=== PATIENT | male | born 1960 | race Caucasian/White ===

== ENCOUNTER 2021-11-12 11:00 | Emergency (ER) | payer OTHER, SELFPAY ==
--- NOTE | 2021-11-12 11:07 | ED.URI ---
HPI - URI/Sore Throat General Chief Complaint: Upper Respiratory Infection Stated Complaint: cough, drainage Time Seen by Provider: 11/12/21 11:08 Source: patient and RN notes reviewed History of Present Illness HPI Narrative: Patient is 60-year-old male who presents the urgent care with complaints of cough and drainage since Thursday. Patient states that he has been taking Mucinex, DayQuil, NyQuil without any relief. Patient denies of any fever, wheezes, shortness of breath, nausea or vomiting. Patient denies any history of pneumonia. No other acute complaints. No acute distress noted. Patient aware of the plan of care. Some parts of this dictation were generated by voice recognition software and may contain typographical and/or grammatical inaccuracies. Related Data Home Medications Medication Instructions Recorded Confirmed atorvastatin 80 mg PO DAILY 11/12/21 11/12/21 hydrochlorothiazide 25 mg PO DAILY 11/12/21 11/12/21 metoprolol tartrate 50 mg PO DAILY 11/12/21 11/12/21 Allergies Allergy/AdvReac Type Severity Reaction Status Date / Time No Known Allergies Allergy Verified 11/12/21 11:33 Review of Systems Review of Systems: CONSTITUTIONAL: Denies fever, chills, or sweats. EYES: Denies visual changes, redness, or discharge. ENT: Denies rhinorrhea, congestion, sore throat, otalgia. Reports of postnasal drainage CARDIOVASCULAR: Denies chest pain, palpitations, or edema. RESPIRATORY: Reports of cough without dyspnea or wheezing GASTROINTESTINAL: Denies abdominal pain, nausea, vomiting, or diarrhea. GENITOURINARY: Denies dysuria or hematuria. SKIN: Denies rash or itching. MUSCULOSKELETAL: Denies back pain, joint pain, or myalgia. NEUROLOGIC: Denies headache, numbness, or weakness. All other systems reviewed are negative, except as documented in HPI. PMFSH Comments At the time of my signature, I reviewed and agree with the nursing past medical, surgical, social, and family history. There is no relevant family history pertinent to the patient complaint. Exam Narrative: GENERAL: This is a well-nourished, well-developed patient, in no apparent distress. HEAD: normocephalic, atraumatic. EYES: PERRL. Sclera clear/white. Vision is grossly intact. EARS: External ears normal, auditory canals clear and without drainage, TMs normal without perforation. Hearing grossly intact. NOSE: External nose normal with no obvious nasal discharge, nares without redness, clear rhinorrhea. THROAT: Mucous membranes moist, posterior pharynx clear. Moderate postnasal drainage NECK: Neck supple CARDIOVASCULAR: Regular rate and rhythm without murmurs, gallops, or rubs. RESPIRATORY: Dry cough noted on exam. Clear to auscultation. Breath sounds equal bilaterally. No wheezes, rales, or rhonchi. SKIN: warm, intact with no suspicious lesions or rash, good texture and turgor. NEURO: awake, alert, and oriented to person, place and time. There were no obvious focal neurologic abnormalities. EXTREMITIES: No clubbing, cyanosis, or edema. Course Course Level of Care: Express Care Visit Vital Signs Vital signs: Vital Signs Temperature 98.7 F 11/12/21 11:26 Pulse Rate 79 11/12/21 11:26 Respiratory Rate 14 11/12/21 11:26 Blood Pressure 134/82 11/12/21 11:26 Pulse Oximetry 98 11/12/21 11:26 Temperature 98.7 F 11/12/21 11:42 Pulse Rate 79 11/12/21 11:42 Respiratory Rate 14 11/12/21 11:42 Blood Pressure 134/82 11/12/21 11:42 Pulse Oximetry 98 11/12/21 11:42 Reviewed MDM - URI/Sore Throat MDM Narrative Medical decision making narrative: Advised the patient to complete the steroid regimen as prescribed. Be sure to eat and drink with the medication. Use the Tessalon Perles as needed for nonproductive cough. May continue Mucinex. Use Flonase nasal spray and Benadryl prior to bedtime to help with postnasal drainage and sinus relief. Use Tylenol/ibuprofen as needed. If you develop any increase in symptoms associate
[2021-11-12 11:26] VITALS: BP 134/82; PULSE 79; RESP 14; TEMP 37.1; O2SAT 98
[2021-11-12 11:42] VITALS: BP 134/82; PULSE 79; RESP 14; TEMP 37.1; O2SAT 98
== END 2021-11-12 12:20 | disposition home or self-care (01) ==
PROVIDERS: Emergency Provider Nurse Practitioner Family; PCP Family Medicine
DX: J40 Bronchitis, not specified as acute or chronic (principal); E78.00 Pure hypercholesterolemia, unspecified; I10 Essential (primary) hypertension
CPT/HCPCS: 99203; G0463

== ENCOUNTER 2024-02-01 09:56 | Outpatient (CLI) | payer MEDICARE, SELFPAY ==
--- NOTE | ~2024-02-01 | XR_ITS ---
XR chest 2V 02/01/2024 10:07 Indication: Cough and shortness of breath Procedure: 2 view chest Comparison: No prior studies for comparison. Findings: There are diffuse interstitial infiltrates bilaterally. No significant effusion. Heart size normal. There is peribronchial thickening. No pneumothorax. No acute osseous abnormality. Impression: 1: Diffuse bilateral interstitial infiltrates with peribronchial thickening. Differential diagnosis i ncludes atypical pneumonia and edema. Reviewed, dictated and finalized at location B. Impression: 1: Diffuse bilateral interstitial infiltrates with peribronchial thickening. Di fferential diagnosis includes atypical pneumonia and edema.
== END 2024-02-01 09:57 | disposition home or self-care (01) ==
LOC: ANHBWCIMG 10:00
PROVIDERS: PCP Nurse Practitioner Adult Health; Visit Provider Nurse Practitioner Adult Health
DX: R05.3 Chronic cough (principal); R91.8 Other nonspecific abnormal finding of lung field
CPT/HCPCS: 71046

== ENCOUNTER 2024-02-05 12:36 | Outpatient (CLI) | payer MEDICARE, SELFPAY ==
--- NOTE | ~2024-02-05 | CT_ITS ---
CT Scan of the Chest without Contrast: Clinical Indication: Shortness of breath Technique: Contiguous sections were acquired throughout the chest without intravenous contrast. Dose reduction technique was used on this scan by utilizing automated exposure control and iterative recon struction technique. The dose-length product (DLP) was 373.09 mGy-cm. Findings: There is no evidence of any significant mediastinal, hilar or axillary lymphadenopathy. The mediastin al soft tissues appear normal. There is no evidence of pleural or pericardial effusion. There is chronic interstitial disease with peripheral and basilar predominance, with interstitial thi ckening and mild architectural distortion. Images through the upper abdomen reveal no abnormalities. Impression: Chronic interstitial disease, compatible with UIP, as detailed above. Reviewed, dictated and finalized at location . Impression: Chronic interstitial disease, compatible with UIP, as detailed above.
== END 2024-02-05 12:37 | disposition home or self-care (01) ==
LOC: ANHIMG 12:37
PROVIDERS: PCP Nurse Practitioner Adult Health; Visit Provider Nurse Practitioner Adult Health
DX: J84.9 Interstitial pulmonary disease, unspecified (principal)
CPT/HCPCS: 71250

== ENCOUNTER 2024-04-06 11:08 | Outpatient (CLI) | payer MEDICARE, SELFPAY ==
[2024-04-08 11:27] LABS: ANA Cascade Screen NEGATIVE (NEGATIVE)
[2024-04-20 14:54] LABS: Aspergillus fumigatus NEGATIVE (NEGATIVE)
== END 2024-04-06 11:09 | disposition home or self-care (01) ==
LOC: ANHBWCLAB 11:09
PROVIDERS: PCP Nurse Practitioner Adult Health; Visit Provider Internal Medicine Critical Care Medicine
DX: J84.9 Interstitial pulmonary disease, unspecified (principal)
CPT/HCPCS: 36415; 86038; 86225; 86235; 86364

== ENCOUNTER 2024-04-26 10:03 | Outpatient (CLI) | payer MEDICARE, OTHER, SELFPAY ==
--- NOTE | 2024-04-26 13:24 | WPDSIXMINUTE ---
Six Minute Walk Procedure Procedure Performed Pulmonary Stress Test (6 min walk) Six Minute Walk Six Minute Walk: This is a pulmonary function test with pre and post-bronchodilator spirometry, plethysmography and diffusing capacity. The test was performed and results interpreted in accordance with the 2019 and 2005 ATS/ERS Task Force guidelines respectively using the Global Lung Function Initiative-2012 reference equations. Patient demonstrated good effort and cooperation. Reproducibility criteria were met. The quality of the pre bronchodilator spirometry maneuver was Grade A and post bronchodilator spirometry maneuver was Grade A. Findings: Spirometry: The contour the inspiratory and expiratory flow tracing are normal. The pre bronchodilator FVC is 3.04 L, 71% predicted. The pre bronchodilator FEV1 is 2.55 L, 78% predicted. The pre bronchodilator FEV1: FVC ratio is 84%. The post bronchodilator FVC is 3.10 L, representing a 2% increase. The post bronchodilator FEV1 is 2.67 L, representing a 5% increase. The post bronchodilator FEV1: FVC ratio is 86%. Plethysmography: The total lung capacity 6.14 L, 91% predicted. The functional residual capacity is 3.36 L, 95% predicted. The residual volume is 2.90 L, 127% predicted. Diffusing capacity: The diffusing capacity unadjusted for hemoglobin and carboxyhemoglobin is 20.5, 76% predicted. The diffusing capacity adjusted for alveolar volume is 5.15, 124% predicted. Impression: The spirometry is normal without evidence of an obstructive abnormality. The forced vital capacity is decreased with a normal FEV1 and no evidence of an obstructive or restrictive abnormality. This is an abnormal but nonspecific finding. There is no significant improvement after inhaling a single dose of albuterol. The lung volumes are normal. The diffusing capacity is normal. There are no prior studies for comparison
--- NOTE | 2024-04-26 13:27 | WPDSIXMINUTE ---
Six Minute Walk Procedure Procedure Performed Pulmonary Stress Test (6 min walk) Six Minute Walk Six Minute Walk: This is a 6 minute walk test. The test was performed and interpreted in accordance with the 2014 ERS/ATS task force guidelines. Findings: The patient's resting room air oxygen saturation measured by pulse oximetry was 95% and heart rate was 70 bpm. Patient ambulated for 442 meters and oxygen saturation remained 90 to 95%. Heart rate at the end of the study was 109 bpm. The patient did not qualify for supplemental oxygen at rest or with ambulation. There are no prior studies for comparison.
== END 2024-04-26 10:04 | disposition home or self-care (01) ==
LOC: ANHPFT 10:05
PROVIDERS: PCP Nurse Practitioner Adult Health; Visit Provider Internal Medicine Critical Care Medicine
DX: J84.9 Interstitial pulmonary disease, unspecified (principal)
CPT/HCPCS: 94060; 94618; 94726; 94729

== ENCOUNTER 2024-10-29 15:36 | Emergency (ER) | payer MEDICARE, OTHER, SELFPAY ==
[2024-10-29 15:43] VITALS: BP 123/73; PULSE 86; RESP 16; TEMP 36.6; O2SAT 98
--- NOTE | 2024-10-29 15:45 | ED.URI ---
HPI - URI/Sore Throat General Chief Complaint: Upper Respiratory Infection Stated Complaint: Chest Congestion Time Seen by Provider: 10/29/24 15:45 Source: patient and RN notes reviewed Mode of arrival: ambulatory Limitations: no limitations History of Present Illness HPI Narrative: 63-year-old male presents with concern for cough for couple of days. Reports history of interstitial lung disease. Reports he was told by his doctor any time he gets a cough he needs to be seen, he could not get into his doctor today. He denies fever. Reports he has taken [id number] medications without relief MD elicited complaint: cough Related Data Home Medications ?Medication ?Instructions ?Recorded ?Confirmed ?Last Taken ?Type hydrochlorothiazide 25 mg tablet 25 mg PO DAILY 11/12/21 10/29/24 Unknown History amlodipine 10 mg tablet 10 mg PO DAILY 02/01/24 10/29/24 Unknown History rosuvastatin 40 mg tablet 40 mg PO DAILY 02/01/24 10/29/24 Unknown History mycophenolate mofetil 500 mg tablet 500 mg PO Q12H 08/02/24 10/29/24 Unknown History Allergies Allergy/AdvReac Type Severity Reaction Status Date / Time No Known Allergies Allergy Verified 10/29/24 15:39 Review of Systems Review of Systems: CONSTITUTIONAL: Denies malaise, chills, sweats, or fever. EYES: Denies visual changes, redness, or discharge. ENT: Reports rhinorrhea, congestion CARDIOVASCULAR: Denies chest pain, palpitations, or edema. RESPIRATORY: Reports cough. Denies dyspnea. GASTROINTESTINAL: Denies abdominal pain, nausea, vomiting, diarrhea SKIN: Denies rash or itching. MUSCULOSKELETAL: Denies myalgia. NEUROLOGIC: Denies headache. All systems reviewed & are unremarkable except as noted in HPI and below [facility] Past Medical History Medical History (Updated 10/29/24 @ 16:05 by Yeimi Vasquez NP) Hyperlipidemia Hypertension age 43 on meds Social History Social History Smoking status: Never smoker Alcohol intake: never Substance use type: does not use Lack of Transportation: No Lack of Food: Never True Current Housing: I Have Housing Concerned About Future Housing: No Difficulty Paying Gas/Electric Bills: No Difficulty Paying for Meds: No Currently Unemployed: No Education: High School Diploma/GED Occupation/Education: occupation Additional occupation/education comments: [employer] Agree to blood products: Yes Comments At time of signature, agree with nursing past medical, surgical, social and family history. There is no relevant family history pertinent to the presenting complaint Exam Narrative: GENERAL: Well-appearing, well-nourished, and in no acute distress. HEAD: Normocephalic EYES: PERRLA, conjunctivae clear ENT: Nares clear. Mucous membranes moist. TM pearly adorno with dull light reflex bilaterally; no tragal tenderness. Oropharynx not erythematous without lesions. Tonsils not enlarged and without exudate, no drooling, no hoarseness, no trismus, uvula midline. NECK: Supple. No lymphadenopathy CHEST: Scattered rhonchi and wheeze, breath sounds equal. No rales, or stridor. No respiratory distress, speaks in full sentences. HEART: Regular rate and rhythm. No murmur heard. SKIN: Warm, dry, no rash. NEURO: Alert and oriented x3. PSYCH: Normal mood and affect Course Course Emergency Course: Patient is aware of diagnosis, understands and agrees to treatment plan. Anticipatory guidance given. Patient agrees to follow-up as directed and is aware of reasons to seek care at the emergency department. Portions of this record may have been created with voice recognition software Level of Care: Express Care Visit Vital Signs Vital signs: Reviewed. MDM - URI/Sore Throat MDM Narrative Medical decision making narrative: Differential diagnosis considered: Leger virus, strep pharyngitis, allergic rhinitis, upper respiratory tract infection, sinusitis, rhinosinusitis, nasopharyngitis. viral pharyngitis, otitis media, otitis externa, pneumonia, bronchitis, viral cough syndrome, viral syndrome, and influenza. Exam findings show no acute concerns or changes; patient is non-toxic appearing and is in no distress. Patient is appropriate for outpatient treatment and follow-up. Lab Data Attestation: I reviewed the patient's lab results. Critical Care Time Critical Care Time Critical Care Time: No Discharge Plan Discharge Clinical Impression: Upper respiratory infection with cough and congestion Patient Disposition: Home, Self-Care Condition: Stable Instructions: Antibiotic Form, Acute Cough (ED) Additional Instructions: Take medication as directed Recommend antihistamine such as Benadryl at night time and Zyrtec or Dana during the day Also, recommend symptomatic treatment includes: rest, fluids, and increase humidity of the air at home. Recommend Acetaminophen as directed on the bottle to reduce fever, pain, headache. Avoid smoking/second-hand smoke. Please schedule a follow-up visit with your personal physician for further evaluation and treatment within 3-5days. If your symptoms persist, change or worsen significantly before you can contact your personal physician then please, without delay, go to the emergency department for further evaluation. Patient Language: Gabonese Prescriptions: New azithromycin [Zithromax Z-Leonard] 250 mg tablet See Rx Instructions .ROUTE .COMPLEX Qty: 6 0RF Rx Instructions: take 500 mg today (day 1), then 250 mg for 4 days (days 2-5) methylprednisolone [Medrol (Leonard)] 4 mg tablets,dose pack See Rx Instructions .ROUTE .COMPLEX Qty: 21 0RF Rx Instructions: orally per package directions No Action hydrochlorothiazide 25 mg Tablet 25 mg PO DAILY amlodipine 10 mg tablet 10 mg PO DAILY rosuvastatin 40 mg tablet 40 mg PO DAILY mycophenolate mofetil 500 mg tablet 500 mg PO Q12H Follow-up/Referrals: Vera Renteria APRN [Primary Care Provider] - Time of Disposition: 16:05
== END 2024-10-29 16:09 | disposition home or self-care (01) ==
PROVIDERS: Emergency Provider Nurse Practitioner; PCP Nurse Practitioner Adult Health
DX: J06.9 Acute upper respiratory infection, unspecified (principal); E78.5 Hyperlipidemia, unspecified; I10 Essential (primary) hypertension; Z79.899 Other long term (current) drug therapy
CPT/HCPCS: 99213; G0463

== ENCOUNTER 2025-01-31 09:47 | Outpatient (CLI) | payer MEDICARE, OTHER, SELFPAY ==
--- OUTSIDE RECORDS SUMMARY | 2025-01-31 10:14 | XMS_ITS | Referral Summary ---
Author Organization [facility] Address [address] [place] [address] Care Team Providers Care Hat Brim Curler Name Role Phone Yoli Lu OT Unavailable [phone] Con Gordillo MD Primary Care Provider [phone] Vera Renteria KITCHEN LEAD Unavailable [phone] Kayleigh Espana RN Unavailable Antonella vailable Encounters Date Type Department Care Team Description 01/13/2025 Telephone [facility] Pulmonary [address] [facility] [address]th [place] [address] [place] [phone] Kayleigh Espana RN 01/12/2025 6:07 PM CDT - 01/12/2025 11:59 PM CDT Hospital Encounter [address] [address] Immunosuppression Discharge Disposition: Discharge to home or self care 01/12/2025 2:30 PM CDT - 01/12/2025 11:59 PM CDT Hospital Encounter [facility] Pulmonary [address] [facility] [address] [place] [phone] ILD (interstitial lung disease) (HCC) Discharge Disposition: Discharge to home or self care 01/12/2025 3:30 PM CDT Office Visit [facility] Pulmonary [address] [facility] 8th [place] [address] [place] [phone] Arabella Rivera MD ILD (interstitial lung disease) (HCC) (Primary Dx); Immunosuppression 12/15/2024 Telephone [facility] Pulmonary [address] [facility] 8th [place] [address] [place] [address] Alpa Rowan CMA 11/22/2024 Results Follow-Up [facility] Pulmonary [address] [facility] [address] [facility] [address] [place] [address] Arabella Rivera MD CBC with auto differential, CBC with auto differential from Last 3 Months Allergies No known active allergies Medications albuterol HFA (PROVENTIL HFA,VENTOLIN HFA,PROAIR HFA) 90 mcg/actuation inhalerIndications :Bronchitis Inhale 2 puffs every 6 (six) hours as needed for wheezing 1 each 12/15/19 24 Active Additional Information Patient not taking.Reported on 01/12/2025 amLODIPine (NORVASC) 10 mg tablet Take 1 tablet (10 mg total) by mouth daily 90 tablet 4 12/15/19 24 Active promethazine (PHENERGAN) 1.25 mg/mL syrup Take 10 mL (12.5 mg total) by mouth 4 (four) times a day as needed for nausea or vomiting (cough) 120 mL 12/18/19 24 Active Additional Information Patient not taking.Reported on 01/12/2025 rosuvastatin (CRESTOR) 40 mg tabletIndications: Multiple-type hyperlipidemia TAKE 1 TABLET BY MOUTH EVERY DAY 90 tablet 4 01/04/20 24 Active hydroCHLOROthiazid e 12.5 mg tabletIndications: Benign hypertension TAKE 1 TABLET (12.5 MG TOTAL) BY MOUTH DAILY 30 tablet 07/04/20 24 Active mycophenolate mofetil (CELLCEPT) 500 mg tablet TAKE 3 TABLETS (1 500 MG TOTAL) BY MOUTH 2 (TWO) TIMES A DAY 360 tablet 9 12/24/19 25 Active methylPREDNISolone (MEDROL DOSEPACK) 4 mg Dosepack Hasn't started yet 01/11/20 25 Active Active Problems Problem Noted Date Diagnosed Date ILD (interstitial lung disease) 07/07/2024 Bronchitis 12/15/2023 Assessment & Plan (12/15/2023 9:53 AM CDT): Has beginnings of bronchitis with slight wheeze heard. He has had this in the past. Will start treatment with Medrol Dosepak, azithromycin and renew his albuterol inhaler. I asked him to call if he has no improvement in symptoms Class 2 obesity due to exces s calories without serious comorbidity with body mass index (BMI) of 36.0 to 36.9 in adult 12/01/2022 Assessment & Plan (12/15/2023 9:52 AM CDT): BMI Follow-up includes: exercise counseling - patient goes to [employer] 2 times a week.. Assessment & Plan (12/01/2022 12:17 PM CDT): BMI Follow-up includes: nutrition counseling, exercise counseling and education provided. Medicare annual wellness visit, initial 12/02/19 Assessment & Plan (12/20/2023 6:51 PM CDT): -Recommended: Healthy diet. Avoiding junk food/fast food. -30 minutes of exercise most days of the week. Increase to 45 minutes for weight loss. Immunizations: Recommended [facility]S REVIEWED WITH HIM Follow-up in 6 months. Assessment & Plan (12/01/2022 12:20 PM CDT): A(n) yearly well adult visit has been performed today. Glenn Correia is up to date on screening tests. He is in need of None- no screening indicated at this time. He is up to date on needed preventative vaccination. We discussed healthy lifestyle habits, educational material has been given. Medications reviewed, changes documented as per the medical record and discussed with patient along with risks vs benefits. Advised to begin progressive daily aerobic exercise program, follow a low fat, low cholesterol diet, attempt to lose weight, reduce salt in diet and cooking, improve dietary compliance, continue current medications, and continue current healthy lifestyle patterns Return in 6 months Benign hypertension 08/16/2013 Overview (12/05/2016): BENIGN HYPERTENSION Assessment & Plan (12/15/2023 9:53 AM CDT): Stable/ Improved. Blood pressure is adequately controlled on amlodipine and hydrochlorothiazide . We will not make any medication changes today. Will have him follow-up in 6 months for continued monitoring and management Assessment & Plan (12/22/2020 5:32 PM CDT): Controlled Will continue amlodipine, hydrochlorothiazide Blood Pressure Follow-up: Lifestyle modifications education provided on sodium reduction, increase physical activity, reduce alcohol consumption and weight reduction. Assessment & Plan (06/21/2020 11:13 AM CDT): Doing okay, BP is controlled Multiple-type hyperlipidemia 02/14/2013 Overview (12/04/2016): MIXED HYPERLIPIDEMIA Assessment & Plan (12/15/2023 9:52 AM CDT): Lipid abnormalities are stable, reviewed previous lipid levels in [facility]. Reviewed recent labs with patient Lab Results Component Value Date CHOL 116 12/01/2023 CHOL 111 09/29/2022 CHOL 117 11/22/2021 Lab Results Component Value Date HDL 33 (L) 12/01/2023 HDL 34 (L) 09/29/2022 HDL 41 11/22/2021 Lab Results Component Value Date LDLCALC 62 12/01/2023 LDLCALC 58 09/29/2022 LDLCALC 57 11/22/2021 LDL 100 06/23/2016 LDL 88 12/03/2015 LDL 92 06/01/2015 Lab Results Component Value Date TRIG 107 12/01/2023 TRIG 97 09/29/2022 TRIG 93 11/22/2021 No results found for: POCCHDLR No results found for: POCNONHDL No results found for: POCCHLPL Continue statin therapy. Lipitor (atorvastatin)- Order for lipid panel was given today to be obtained. Pt voiced understanding of lab drawn and continuation of current medication regimen. Assessment & Plan (12/22/2020 5:32 PM CDT): Cholesterol is quite well controlled, save for the HDL/good cholesterol, which can be improved with regular exercise. Liver enzymes are normal Renal function is good as well Blood counts are normal Attention deficit disorder (ADD) without hyperac tivity 03/04/2011 Overview (12/05/2016): ATTN DEFIC NONHYPERACT Atopic rhinitis 09/04/2010 Overview (12/04/2016): ALLERGIC RHINITIS NOS Resolved Problems Problem Noted Date Diagnosed Date Resolved Date BMI 33.0-33.9,adult 06/21/2020 12/15/19 24 Assessment & Plan (06/21/2020 10:57 AM CDT): BMI Follow-up includes: nutrition counseling, exercise counseling and education provided. Encounter for screening colonoscopy 03/19/2020 12/15/2023 Overview (03/19/2020): Added automatically from request for surgery [id number] Acute non-recurrent maxillary sinusitis 03/23/2018 07/01/2018 Assessment & Plan (03/23/2018 7:45 PM CDT): 1. Sudafed 2. Augmentin 3. Nasal saline rinses as needed for congestion. 4. Follow-up in 5-7 days - if symptoms worsen or persist Encounter for long-term (cur rent) use of antibiotics 06/17/2017 12/24/2017 Septic arthritis 06/01/2017 07/01/2018 Pain in wrist 05/15/2017 12/30/2018 Fracture of carpal bone 05/15/201708/2017 Gastroesophageal reflux disease 02/14/2013 06/25/2017 Overview (12/04/2016): ESOPHAGEAL REFLUX Immunizations Immunization Administration Dates Next Due Influenza, Quadrivalent, Shauna l Culture-based MDCK, Preservative Free, Antibiotic Free, Intramuscular 08/06/2021 Influenza, Quadrivalent, Spl it, Intramuscular 06/24/2016,06/07/2015 Influenza, Quadrivalent, Spl it, Preservative Free, Intramuscular 06/21/2020,07/07/2019,07/01/2018 07/01/2019 Influenza, Split 09/04/2010 Influenza, Trivalent, High D ose, Split, Preservative Free, Intramuscular 07/07/2024 Influenza, Trivalent, IM (MDV) 05/22/2014 Influenza, Unspecified 08/31/2023(Deferr ed: Patient Refused),08/31/2022(Deferred: Patient Refused),05/18/2017 Koko (J&J) SARS-CoV-2 Vaccination 11/05/2020 TD Preservative Free 01/21/2017 Tdap 09/04/2010 ZOSTER Recombinant 12/01/2022 Social History Tobacco Use Types Packs/Day Years Used Date Smoking Tobacco: Never Smokeless Tobacco: Never Tobacco Cessation:Counseling Given: Not Answered Alcohol Use Standard Drinks/Week Comments No 0 (1 standard drink = 0.6 oz pur e alcohol) Humiliation, Afraid, Rape, and Kick questionnair e Answer Date Recorded Within the last year, have y ou been afraid of your partner or ex-partner? No 11/27/2021 Within the last year, have y ou been humiliated or emotionally abused in other ways by your partner or ex-partner? No Within the last year, have y ou been kicked, hit, slapped, or otherwise physically hurt by your partner or ex-partner? No 11/27/2021 Within the last year, have y ou been raped or forced to have any kind of sexual activity by your partner or ex-partner? No 11/27/2021 Social Connection and Isolat ion Panel [NHANES] Answer Date Recorded In a typical week, how many times do you talk on the phone with family, friends, or neighbors? More than three times a week 11/27/2021 Frequency of Social Gatherin gs with Friends and Family Not on file 11/27/2021 Attends Holiness Services Not on file 11/27 Active Member of Clubs or Organizations Not on f ile 11/27/2021 Attends Club or Organization Meetings Not on gurdeep e 11/27/2021 Are you , , di vorced, , never , or living with a partner? 11/27/2021 AUDIT-C Answer Date Recorded Q1: How often do you have a drink containing alc ohol? Never 11/27/2021 Average Number of Drinks Not on file 022 Q3: How often do you have si x or more drinks on one occasion? Never 11/27/2021 Overall Financial Resource Strain (CARDIA) Answe r Date Recorded How hard is it for you to pa y for the very basics like food, housing, medical care, and heating? Not hard at all 11/27/2021 PHQ-2 Answer Date Recorded PHQ-2 Total Score (If total score is 3 or more points, staff should administer the PHQ-9) 0 12/15/2023 [facility] - Occupational Stress Questionnaire Answer Date Recorded Do you feel stress - tense, restless, nervous, or anxious, or unable to sleep at night because your mind is troubled all the time - these days? Not at all 11/27/2021 Exercise Vital Sign Answer Date Recorde d On average, how many days pe r week do you engage in moderate to strenuous exercise (like a brisk walk)? 4 days 11/27/2021 On average, how many minutes do you engage in exercise at this level? 60 min 11/27/2021 Hunger Vital Sign Answer Date Recorded Within the past 12 months, y ou worried that your food would run out before you got the money to buy more. Never true 11/28/19 22 Within the past 12 months, t he food you bought just didn't last and you didn't have money to get more. Never true 11/27/2021 PRAPARE - Transportation Answer Date Re corded In the past 12 months, has l ack of transportation kept you from medical appointments or from getting medications? No 10/31 In the past 12 months, has l ack of transportation kept you from meetings, work, or from getting things needed for daily living? No 11/27/2021 Housing Stability Vital Sign Answer Negrito e Recorded In the last 12 months, was t here a time when you were not able to pay the mortgage or rent on time? No 11/27/2021 Number of Places Lived in the Last Year Not on f ile 11/27/2021 In the last 12 months, was t here a time when you did not have a steady place to sleep or slept in a senior care (including now)? 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 Gender Identity Not on file Sexual Orientation Not on file Occupation Industry Job Start Date Job End Date 2 Not on file Not on file Not on file Last Filed Vital Signs Vital Sign Reading Time Taken Comments Blood Pressure 120/80 01/12/2025 3:20 PM CDT Pulse 74 01/12/2025 3:20 PM CDT Temperature 36.7 C (98.1 F) 01/12/2025 3:20 PM CDT Respiratory Rate 18 01/12/2025 3:20 PM CDT Oxygen Saturation 95% 01/12/2025 3:20 PM CDT Inhaled Oxygen Concentration - - Weight 98.9 kg (218 lb) 01/12/2025 3:20 PM CDT Height 172.7 cm (5' 8) 01/12/2025 3:20 PM CDT Body Mass Index 33.15 01/12/2025 3:20 PM CDT Plan of Treatment Not on file Procedures Procedure Name Priority Date/Time Associated Diagnosis Comments CBC WITH AUTO DIFFERENTIAL Routine 01/16/2025 1:59 PM CDT Immunosuppression RESPIRATORY PATHOGEN PANEL Routine 01/12/2025 8:44 PM CDT Immunosuppression PULMONARY FUNCTION TEST (PFT) Routine 01/12/2025 3:04 PM CDT ILD (interstitial lung disease) (HCC) CBC WITH AUTO DIFFERENTIAL Routine 11/18/2024 10:16 AM CDT Immunosuppression PSA SCREEN Routine 12/01/2023 12:11 PM CDT Screening for malignant neoplasm of prostate COLONOSCOPY 04/23/2020 9:01 AM CDT HEPATITIS C ANTIBODY Routine 12/28/2018 3:32 PM CDT Encounter for hepatitis C screening test for low risk patient from Last 3 Months or Most Recently Relevant to Health Maintenance Results * CBC with auto differential (01/16/2025 1:59 PM CDT) WBC 10.3 3.8 - 10.8 Thousand/u L [facility] RBC, POC 4.69 4.20 - 5.80 Million/uL [facility] Hgb 14.5 13.2 - 17.1 g/dL [facility] Hct 43.5 38.5 - 50.0 % [facility] MCV 92.8 80.0 - 100.0 fL [facility] MCH 30.9 27.0 - 33.0 pg [facility] MCHC 33.3 32.0 - 36.0 g/dL [facility] Comment: For adults, a slight decrease in the calculated MCHC value (in the range of 30 to 32 g/dL) is most likely not clinically significant; however, it should be interpreted with caution in correlation with other red cell parameters and the patient's clinical condition. Rdw 12.7 11.0 - 15.0 % [facility] Platelets 293 140 - 400 Thousand/u L [facility] MPV 9.6 7.5 - 12.5 fL [facility] Neutrophils, abs 7,354 1,500 - 7,800 cells/uL [facility] Lymphocytes, abs 2,009 850 - 3,900 cells/uL [facility] Monocyte abs 762 200 - 950 cells/uL [facility] Eosinophils, abs 155 15 - 500 cells/uL [facility] Basophils, abs 21 0 - 200 cells/uL [facility] Neutrophils 71.4 % [facility] Lymphocyte pct 19.5 % [facility] Monocytes 7.4 % [facility] Eosinophils 1.5 % [facility] Basophils 0.2 % [facility] Blood 01/16/2025 1:59 PM CDT 01/16/2025 2:00 PM CDT Narrative [facility] - 01/17/2025 5:40 AM CDT FASTING:NO FASTING: NO us Arabella Rivera MD LAB BLOOD ORDERABLES Final R esult [facility] [address] [place] [address] * Respiratory pathogen panel Nasopharyngeal (01/12/2025 8:44 PM CDT) Pathologist [facility] Influenza A RNA Not Detected Not Detected Influenza B RNA Not Detected Not Detected [facility] RSV RNA Not Detected Not Detected [facility] COVID-19 RNA Not Detected Not Detected [facility] Coronavirus 229E RNA Not Detected Not Detected [facility] Coronavirus HKU1 RNA Not Detected Not Detected [facility] Coronavirus NL63 RNA Not Detected Not Detected [facility] Coronavirus OC43 RNA Not Detected Not Detected [facility] Adenovirus DNA Not Detected Not Detected [facility] Metapneumovirus RNA Not Detected Not Detected [facility] Rhinovirus/Enterov irus RNA Not Detected Not Detected [facility] Parainfluenza 1 RNA Not Detected Not Detected [facility] Parainfluenza 2 RNA Not Detected Not Detected [facility] Parainfluenza 3 RNA Not Detected Not Detected [facility] Parainfluenza 4 RNA Not Detected Not Detected [facility] B. pertussis DNA Not Detected Not Detected [facility] B. parapertussis DNA Not Detected Not Detected [facility] C. pneumoniae DNA Not Detected Not Detected [facility] M. pneumoniae DNA Not Detected Not Detected [facility] Nasopharyngeal 01/12/2025 8: 44 PM CDT 01/12/2025 9:17 PM CDT Narrative [facility] - 01/12/2025 10:23 PM CDT Patient immunocompromised - full RPP panel Is the Patient experiencing symptoms consistent with COVID?->Yes Surveillance testing for transplant patient?->No Interpretive Data The [employer] FilmArray Respiratory Panel (RP2.1) assay is a multiplexed real-time PCR based nucleic acid test capable of simultaneous qualitative detection and identification of multiple respiratory viral and bacterial nucleic acids, including SARS Coronavirus 2 (the causative agent of COVID-19). The following bacteria, viruses and virus subtypes can be identified using the FilmArray RP2.1 assay: Bordetella pertussis, Bordetella parapertussis, Chlamydia pneumoniae, Mycoplasma pneumoniae, Adenovirus, SARS Coronavirus 2, seasonal coronaviruses (Coronavirus HKU1, Coronavirus NL63, Coronavirus 229E, and Coronavirus OC43), Influenza A, Influenza A subtype H1, Influenza A subtype H3, Influenza A subtype 2009 H1, Influenza B, Metapneumovirus, Parainfluenza 1, Parainfluenza 2, Parainfluenza 3, Parainfluenza 4, RSV, Rhinovirus/Enterovirus. Due to the genetic similarity between human Rhinovirus and Enterovirus, the FilmArray RP2.1 assay cannot reliably differentiate them. Coronavirus OC43 may cross-react with some isolates of Coronavirus HKU1. A dual positive result may be due to cross-reactivity or may indicate a co- infection. The detection and identification of specific viral and bacterial nucleic acids from individuals exhibiting signs and symptoms of a respiratory infection aids in the diagnosis of respiratory infection if used in conjunction with other clinical and epidemiological information. The results of this test should not be used as the sole basis for diagnosis, treatment, or other management decisions. Negative results in the setting of a respiratory illness may be due to infection with pathogens that are not detected by this test. Positive results do not rule out infection/co-infection with other organisms. The agent(s) detected by the FilmArray RP2.1 may not be the definite cause of disease. Additional testing (lab, imaging, etc.) may be necessary when evaluating a patient with possible respiratory tract infection. The FilmArray RP2.1 assay has FDA clearance for testing of KITCHEN LEAD swabs. The performance of additional specimen types has been assessed by the performing laboratory. The performance characteristics of this assay have been determined by [facility]ious [facility]. Current interpretive data was last revised on 22. us Arabella Rivera MD LAB MICROBIOLOGY - GENERAL O RDERABLES Final Result [facility] [place] [address] * Pulmonary Function Test - (01/12/2025 3:04 PM CDT) Pathologist [facility] FVC PRE 2.65 L [facility] FVC %PRE PRED 68 % [facility] FEV1 PRE 2.39 L [facility] FEV1 %PRE PRED 80 % [facility] FEV1/FVC PRE 90.3 % [facility] Anatomical Region Laterality Modality PFT 01/12/2025 2:34 PM CDT Narrative 01/12/2025 8:24 PM CDT Table formatting from the original result was not included. [facility] Division of Pulmonary & Critical Care Medicine [address] [place] [address]; [place] [address]; [place] [address]; [phone] Pulmonary Function Laboratory Pulmonary Stress Test Simple/Oxygen Assessment Patient: Glenn Correia Date: 01/12/2025 : 1960 Ht: 68 IN Wt: 218 LBS Time (min) Distance (ft)/ Engel O2 L/M SpO2 HR Dee* BP FEV1 % Pred Rest: RA 96 97 0 134/79 2.39 80 % Walk/Bike: 1 RA 90 107 0 2 RA 92 111 0 3 RA 90 115 0 4 RA 90 116 0 5 RA 90 116 0 6 min 0 sec RA 90 118 0 Recovery: 1 RA 94 108 0 138/86 2.32 78% 3 RA 97 100 0 *Dee rate of perceived exertion (1-10 dyspnea scale) Heber, CHEST 2003; 123:[id number] Walk Test Summary: Six Minute Walk Distance: 1500 ft Six-minute Walk Work [distance (m) x body wt (kg)]: 39361 kg.m (normal >60,000kg.m) Oxygen required to maintain SpO2 greater than 90% during six minutes of walkin L/M Comments: O2A Interpretation: Breathing room air, SpO2 is normal at rest and during exercise sufficient to increase pulse, SpO2 falls but remains normoxemic . On this basis, SpO2 is adequate at rest breathing room air and while walking breathing room air. This level of exercise is associated with no significant change of FEV1. By signing this report, the attending pulmonary physician certifies that he/she has personally reviewed and interpreted the graphic and numerical data associated with this pulmonary function study and has reviewed and /or edited a preliminary draft report and agrees with the written final report. PFT performed at:->[facility] Adult PFT [facility]- [id number] Procedure:->Spirometry Procedure:->Oxygen Assessment Titration Pulmonary Function Test Interpretation SPIROMETRY: The FEV1 to FVC ratio is normal. The FEV1 and FVC are reduced in a pattern suggestive of a restrictive abnormality. The flow volume loop is normal. Impression: There is a mild restrictive ventilatory defect. However, measurement of lung volumes is suggested to confirm this if clinically indicated. Compared with most recent study, there has been no significant interval change. The attending pulmonary physician certifies a physician presence in the [facility] during the administration of aerosolized bronchodilator. The attending pulmonary physician certifies that he/she has reviewed and interpreted the graphic and numerical data of this pulmonary function study and agrees with the written final report. The lower limit of normal for PaO2 and %HbO2 is age dependent. However, the [facility] Pulmonary Function Laboratory defines hypoxemia as a PaO2 <56 mm Hg or a %HbO2 <89%. Starting on August of 2024 the [facility] Pulmonary Function Laboratory utilizes race neutral GLI Global normative equations. us Arabella Rivera MD PFT ORDERABLES Final Result * CBC with auto differential (11/18/2024 10:16 AM CDT) WBC 5.5 3.8 - 10.8 Thousand/u L [facility] RBC, POC 4.65 4.20 - 5.80 Million/uL [facility] Hgb 14.2 13.2 - 17.1 g/dL [facility] Hct 44.1 38.5 - 50.0 % [facility] MCV 94.8 80.0 - 100.0 fL [facility] MCH 30.5 27.0 - 33.0 pg [facility] MCHC 32.2 32.0 - 36.0 g/dL [facility] Comment: For adults, a slight decrease in the calculated MCHC value (in the range of 30 to 32 g/dL) is most likely not clinically significant; however, it should be interpreted with caution in correlation with other red cell parameters and the patient's clinical condition. Rdw 12.9 11.0 - 15.0 % [facility] Platelets 177 140 - 400 Thousand/u L [facility] MPV 9.7 7.5 - 12.5 fL [facility] Neutrophils, abs 2,332 1,500 - 7,800 cells/uL [facility] Lymphocytes, abs 2,409 850 - 3,900 cells/uL [facility] Monocyte abs 578 200 - 950 cells/uL [facility] Eosinophils, abs 160 15 - 500 cells/uL [facility] Basophils, abs 22 0 - 200 cells/uL [facility] Neutrophils 42.4 % [facility] Lymphocyte pct 43.8 % [facility] Monocytes 10.5 % [facility] Eosinophils 2.9 % [facility] [facility] Bas[facility] 0.4 % [facility] Blood 11/18/2024 10:1 6 AM CDT 11/18/2024 10:17 AM CDT Narrative [facility] - 11/19/2024 5:32 AM CDT FASTING:NO FASTING: NO us Arabella Rivera MD LAB BLOOD ORDERABLES Final R esult ISABEL [facility] [address] [place] [address] * PSA screen (12/01/2023 12:11 PM CDT) PSA-Total 0.25 <=5.40 ng/mL Comment: Interpretive Data AGE SEX REFERENCE INTERVAL 0 minutes-150 years Female None 0 minutes-49 years Male None 50-59 years Male 0-3.90 60-69 years Male 0-5.40 70-79 years Male 0-6.20 80-150 years Male 0-6.20 The Bin PSA Total assay procedure was used. Results from different manufacturers or methods may not be comparable. Serial testing should be performed using the same method. Current interpretive data last revised 22. Blood 12/01/2023 12:1 1 PM CDT 12/01/2023 10:59 PM CDT us Phil Lomeli MD LAB BLOOD ORDERABLES Final Result [facility] [address] [place] [address] * COLONOSCOPY (04/23/2020 9:01 AM CDT) Anatomical Region Laterality Modality Other Narrative Procedure Note Farooq Santiago MD - 04/23/2020 9:01 AM CDT [facility] Patient Name: Glenn Correia Procedure Date: 04/23/2020 9:01 AM Date of : 1960 Admit Type: Outpatient Age: 59 Gender: Male Attending MD: Farooq Santiago M.D. Room: [facility] ENDOSCOPY ROOM 2 Note Status: Finalized Patient Profile: Refer to note in patient chart for documentation of history and physical. Procedure: Colonoscopy Indications: Screening for colorectal malignant neoplasm, Last colonoscopy: February 2010 Referring MD: Phil Lomeli M.D. Providers: Farooq Santiago M.D. Impression: - Hemorrhoids found on perianal exam. - Diverticulosis in the sigmoid colon, in the descending colon and in the transverse colon. - The examination was otherwise normal. - No specimens collected. Recommendation: - Discharge patient to home. - Resume previous diet. - Continue present medications. - Repeat colonoscopy in 10 years for screeningpurposes. - Return to primary care physician as previously scheduled. Medicines: Propofol per Anesthesia Complications: No immediate complications. Estimated Blood Loss: Estimated blood loss: none. Procedure: Pre-Anesthesia Assessment: - This assessment was completed [Time of Assessment] prior to the administration of sedation. The benefits, risks and alternatives of theprocedure and sedation were discussed and informed consent was obtained. All questions were answered. Please referto the signed informed consent document in the medical record. Bowel prep was administered using a single dose. The bowel preparation used was Miralax. Thebowel preparation used was bisacodyl tablets. The scopewas passed under direct vision. The [id number] was introduced through the anus andadvanced to the the cecum, identified by appendiceal orificeand ileocecal valve. The colonoscopy was performedwithout difficulty. The patient tolerated the procedurewell. The quality of the bowel preparation was good. Findings: Hemorrhoids were found on perianal exam. Multiple small and large-mouthed diverticula were found in thesigmoid colon, descending colon and transverse colon. The exam was otherwise without abnormality. Electronically signed by Farooq Santiago M.D. Farooq Santiago M.D. 04/23/2020 11:23:33 AM Number of Addenda: 0 Note Initiated On: 04/23/2020 9:01 AM Procedure Code(s): --- Professional --- G0121, Colorectal cancer screening; colonoscopy on individual not meeting criteria for high risk Diagnosis Code(s): --- Professional --- K57.30, Diverticulosis of large intestine without perforation orabscess without bleeding K64.9, Unspecified hemorrhoids Z12.11, Encounter for screening for malignant neoplasm of colon CPT copyright 2017 [employer]. All rights reserved. The codes documented in this report are preliminary and upon information coder reviewmay be revised to meet current compliance requirements. Recognized by the [employer] for promoting quality in endoscopy us Farooq Santiago MD ENDOSCOPY PROCEDURES Final Re sult * Hepatitis C antibody (12/28/2018 3:32 PM CDT) Hep C Ab Negative Negative CHAR ANDERSON (RAVI) Comment:Testing performed by : [facility], [address] [place] [address], [place]., [address] Blood specimen (specimen) 12/28/2018 3:32 PM CDT 12/29/2018 9:48 AM CDT Narrative CHAR ANDERSON (RAVI) - 12/29/2018 10:39 AM CDT us Phil Lomeli MD LAB MICROBIOLOGY - GENERAL ORDERABLES Final Result [facility] ANDERSON ([place]) 1 [facility] Department [place] [address] from Last 3 Months or Most Recently Relevant to Health Maintenance Insurance MEDICARE GROUP [facility] Member Subscriber Plan / Payer (Ef fective 2023-Present) Name:Glenn Correia Relation to Subscriber:Self Name:Glenn Correia Payer ID:[id number] Group ID:[id number] Type:COMMERCIAL Address: [address] [address] [place] [address] [employer] [place] Member Subscriber Plan / Payer (Ef fective 2013-Present) Name:Glenn Correia Relation to Subscriber:Self Name:Glenn Correia Payer ID:[id number] Group ID:[id number] Type:COMMERCIAL Address: [address] [address] [place] [address] MEDICARE Advance Directives For more information, please contact: [phone] * Full Code (Latest Code Status on File) Date Activated Date Inactivated Comments 04/23/2020 8:55 AM 04/23/2020 4:27 PM * Full Code Date Activated Date Inactivated Comments 04/23/2020 8:55 AM 04/23/2020 8:55 AM Care Teams Hat Brim Curler Relationship Specialty Start Date End Date Con Gordillo MD [address] [place] [address] [place] [address] PCP - General Family Practice 07/12/24 Yoli Lu OT [address] [facility] [place] [address] Occupational Therapist Occupational Therapy 08/19/17 Vera Renteria NP [address] [place] [address] Nurse Practitioner Nurse Practitioner 07/12/24 Kayleigh Espana, RN Registered Nurse Pulmonary Disease 08/22/24
--- OUTSIDE RECORDS SUMMARY | 2025-01-31 10:14 | XMS_ITS | Clinical Summary ---
Author Organization [facility] Address [address] [place] [address] Care Team Providers Care Machine Sand Mixer Name Role Phone Yoli Lu OT Unavailable [phone] Con Gordillo MD Primary Care Provider [phone] Vera Renteria NP Unavailable [phone] Kayleigh Espana RN Unavailable Antonella vailable Allergies No known active allergies Medications albuterol [...] includes: exercise counseling - patient goes to [employer] 2 times a week.. Assessment & Plan (12/01/2022 12:17 PM CDT): BMI Follow-up includes: nutrition counseling, exercise counseling and education provided. Medicare annual wellness visit, initial 12/02/19 23 Assessment & Plan (12/20/2023 6:51 PM CDT): [...] are stable, reviewed previous lipid levels in [facility]. Reviewed recent labs with patient Lab Results [...] Date Resolved Date BMI 33.0-33.9,adult 06/21/2020 12/15/19 Assessment & Plan (06/21/2020 10:57 AM CDT): BMI Follow-up includes: nutrition counseling, exercise counseling and education provided. Encounter for screening colonoscopy 03/19/2020 12/15/2023 Overview (03/19/2020): Added automatically from request for surgery [id number] Acute non-recurrent maxillary sinusitis 03/23/2018 07/01/2018 Assessment & Plan (03/23/2018 7:45 PM CDT): 1. Sudafed 2. Augmentin 3. Nasal saline rinses as needed for congestion. 4. Follow-up in 5-7 days - if symptoms worsen or persist Encounter for long-term (cur rent) use of antibiotics 06/17/2017 12/24/2017 Septic arthritis 06/01/2017 07/01/2018 Pain in wrist 05/15/2017 12/30/2018 Fracture of carpal bone 05/15/2017 11/0 08/2017 Gastroesophageal reflux disease 02/14/2013 06/25/2017 Overview (12/04/2016): ESOPHAGEAL REFLUX Encounters Date Type Department Care Team Description 01/13/2025 Telephone [facility] [address] [facility] [address]th [place] [address] [place] [address] Kayleigh Espana RN 01/12/2025 6:07 PM CDT - 01/12/2025 11:59 PM CDT Hospital Encounter [facility] [address] [place] [address] Immunosuppression Discharge Disposition: Discharge to home or self care 01/12/2025 3:30 PM CDT Office Visit [facility] [address] [facility] 8th [place] [address] [place] [address] Arabella Rivera MD ILD (interstitial lung disease) (HCC) (Primary Dx); Immunosuppression 01/12/2025 2:30 PM CDT - 01/12/2025 11:59 PM CDT Hospital Encounter [facility] [address] [facility] [address] [place] [address] ILD (interstitial lung disease) (HCC) Discharge Disposition: Discharge to home or self care 12/15/2024 Telephone [facility] [address] [facility] 8th [place] [address] [place] [address] Alpa Rowan CMA 11/22/2024 Results Follow-Up [facility] [address] [facility] [address] [place] [address] Arabella Rivera MD CBC with auto differential, CBC with auto differential from Last 3 Months Immunizations Immunization Administration Dates Next Due Influenza, [...] Free 01/21/2017 Tdap 09/04/2010 ZOSTER Recombinant 12/01/2022 Surgical History Surgery Date Site/Laterality Comments APPENDECTOMY appendicitis: Appendectomy WRIST SURGERY 08/31/2016 - 08/30/2017 Right COLONOSCOPY 03/11/2010 COLONOSCOPY 04/23/2020 Medical History Medical History Date Comments Hypertension Hyperlipidemia Family History Medical History Relation Name Comments Parkinsonism Father No Known Problems Mother Relation Name Status Comments Father Mother Alive Social History Tobacco Use Types Packs/Day Years [...] and Family Not on file 11/27/2021 Attends Judaism Services Not on file 11/27 Active Member [...] staff should administer the PHQ-9) 0 12/15/2023 [facility] - Occupational Stress Questionnaire Answer Date Recorded [...] place to sleep or slept in a longterm (including now)? No 11/27/2021 Sex and Gender Information Value Date Recorded Sex Assigned at Not on file Legal Sex Male 12:14 AM WELL TENDER Gender Identity Not on file Sexual Orientation Not on file Occupation Industry Job Start Date Job End Date 2 Not on file Not on file Not on file Obstetrics History Last Filed Vital Signs Vital Sign Reading [...] 01/12/2025 3:20 PM CDT Plan of Treatment Health Maintenance Due Date Last Done Comments Hepatitis B Screening 1976 Pneumococcal vaccine 65+ (1 of 2 - PCV) 1977 Zoster Vaccine (2 of 2) 01/26/2023 12/01/2022 Covid-19 Vaccine (3 - 2023-2 5 season) 2024 08/17/2021, 11/05/2020 Depression Screening 12/14/2024 12/15/2023, 11/27/2021, 11/27/2021, Additional history exists Fall Risk Assessment 12/14/2024 12/15/2023, 04/23/2020, 12/24/2017 Well Visit 65+ 12/14/2024 12/15/2023, 04/0 10/2022, 11/27/2021, Additional history exists Prostate Cancer Screening-PSA 11/30/2025, 12/17/2020, 06/28/2018, Additional history exists DTaP/Tdap/Td Vaccine (3 - Td or Tdap) 01/21/2027 01/21/2017, 09/04/2010 Colon Cancer Screening-Colonoscopy 04/23/2030 04/23/2020, 03/11/2010, 03/11/2010 Hepatitis C Screening Completed 12/28/2018 Colon Cancer Screening-CT Colonography Discontinued 04/23/2020, 03/11/2010, 03/11/2010 Colon Cancer Screening-DNA Stool Discontinued 04/23/2020, 03/11/2010, 03/11/2010 Colon Cancer Screening-FIT Discontinued 04/23, 03/11/2010, 03/11/2010 Colon Cancer Screening-Sigmoidoscopy Discontinued 04/23/2020, 03/11/2010, 03/11/2010 Influenza Vaccine Completed 07/07/2024, , 06/21/2020, Additional history exists Procedures Procedure Name Priority Date/Time Associated Diagnosis [...] BLOOD ORDERABLES Final R esult [facility] [address] [place] [address] * Respiratory pathogen panel Nasopharyngeal (01/12/2025 8:44 PM CDT) Pathologist [facility] Influenza A RNA Not Detected Not Detected Influenza B RNA Not Detected Not Detected [facility] RSV RNA Not Detected Not Detected [facility] COVID-19 RNA Not Detected Not Detected [facility] Coronavirus 229E RNA Not Detected Not Detected [facility] Coronavirus HKU1 RNA Not Detected Not Detected [facility] Coronavirus NL63 RNA Not Detected Not Detected [facility] Coronavirus OC43 RNA Not Detected Not Detected [facility] Adenovirus DNA Not Detected Not Detected [facility] Metapneumovirus RNA Not Detected Not Detected [facility] Rhinovirus/Enterov irus RNA Not Detected Not Detected [facility] Parainfluenza 1 RNA Not Detected Not Detected [facility] Parainfluenza 2 RNA Not Detected Not Detected [facility] Parainfluenza 3 RNA Not Detected Not Detected [facility] Parainfluenza 4 RNA Not Detected Not Detected [facility] B. pertussis DNA Not Detected Not Detected [facility] B. parapertussis DNA Not Detected Not Detected [facility] C. pneumoniae DNA Not Detected Not Detected [facility] M. pneumoniae DNA Not Detected Not Detected [facility] Nasopharyngeal 01/12/2025 8: 44 PM CDT 01/12/2025 9:17 PM CDT Narrative [facility] - 01/12/2025 10:23 PM CDT Patient immunocompromised - full RPP panel Is the Patient experiencing symptoms consistent with COVID?->Yes Surveillance testing for transplant patient?->No Interpretive Data The [email or web address] FilmArray Respiratory Panel (RP2.1) assay is a [...] assay has FDA clearance for testing of LINK AND LINK KNITTING MACHINE OPERATOR swabs. The performance of additional specimen types has been assessed by the performing laboratory. The performance characteristics of this assay have been determined by [facility]. Current interpretive data was last revised on 22. us Arabella Rivera MD LAB MICROBIOLOGY - GENERAL [facility] Final Result CHAR [facility] Department [place] [address] * Pulmonary Function Test - (01/12/2025 3:04 PM CDT) FVC PRE 2.65 L [facility] FVC %PRE PRED 68 % [facility] FEV1 PRE 2.39 L [facility] FEV1 %PRE PRED 80 % [facility] FEV1/FVC PRE 90.3 % [facility] Anatomical Region Laterality Modality PFT 01/12/2025 2:34 PM CDT Narrative 01/12/2025 8:24 PM CDT Table formatting from the original result was not included. [facility] Division of Pulmonary & Critical Care Medicine [address] [place] [address]; [employer] [address]; [place] [address]; [phone] Pulmonary Function Laboratory Pulmonary Stress Test Simple/Oxygen [...] Work [distance (m) x body wt (kg)]: 30190 kg.m (normal >60,000kg.m) Oxygen required to maintain [...] with the written final report. PFT performed at:->[facility] Adult PFT Lab- [facility] Procedure:->Spirometry Procedure:->Oxygen [...] and %HbO2 is age dependent. However, the [facility] Pulmonary Function Laboratory defines hypoxemia as a PaO2 <56 mm Hg or a %HbO2 <89%. Starting on August of 2024 the [facility] Pulmonary Function Laboratory utilizes race neutral GLI Global normative equations. us Arabella Rivera MD PFT ORDERABLES Final Result * CBC with auto differential (11/18/2024 10:16 AM CDT) Pathologist [facility] WBC 5.5 3.8 - 10.8 Thousand/u L [...] BLOOD ORDERABLES Final R esult [facility] [address] [place] [address] * PSA screen (12/01/2023 12:11 PM CDT) [...] Lomeli MD LAB BLOOD ORDERABLES Final Result Performing Organization Address City/[facility] Co de Phone Number CHAR [address] [address] Department [place] [address] * COLONOSCOPY (04/23/2020 9:01 AM CDT) Anatomical Region Laterality Modality Other Narrative Procedure Note Farooq Santiago MD - 04/23/2020 9:01 AM CDT [facility] Patient Name: Glenn Correia Procedure Date: 04/23/2020 9:01 AM Date of : 1960 Admit Type: Outpatient Age: 59 Gender: Male Attending MD: Farooq Santiago M.D. Room: [facility] ENDOSCOPY ROOM 2 Note Status: Finalized Patient [...] The scopewas passed under direct vision. The [id number] was introduced through the anus andadvanced to [...] malignant neoplasm of colon CPT copyright 2017 [employer]. All rights reserved. The codes documented in this report are preliminary and upon manager environmental affairs reviewmay be revised to meet current compliance requirements. Recognized by the [employer] for promoting quality in endoscopy us Farooq Santiago MD ENDOSCOPY PROCEDURES Final Re sult * Hepatitis C antibody (12/28/2018 3:32 PM CDT) Hep C Ab Negative Negative CHAR ANDERSON (RAVI) Comment:Testing performed by : [facility], [address] [place] [address], [place]., [address] Blood specimen (specimen) 12/28/2018 3:32 PM CDT 12/29/2018 9:48 AM CDT Narrative [facility] ([facility]) - 12/29/2018 10:39 AM CDT Phil Lomeli MD LAB MICROBIOLOGY - GENERAL ORDERABLES Final Result CHAR ANDERSON ([place]) 1 [facility] [place] [address] from Last 3 Months or Most Recently Relevant to Health Maintenance Insurance MEDICARE GROUP [facility] Member Subscriber Plan / Payer (Ef fective 2023-Present) Name:Glenn Correia Relation to Subscriber:Self Name:Glenn Correia Payer ID:[id number] Group ID:[id number] Type:COMMERCIAL Address: [address] [address] [place] [address] [employer] [facility] GROUP ADMIN[place] Member Subscriber Plan / Payer (Ef fective 2013-Present) Name:Glenn Correia [place] Relation to Subscriber:Self Name:Glenn Correia Payer ID:[id number] Group ID:[id number] Type:COMMERCIAL Address: [address] [address] [place] [address] MEDICARE Advance Directives For more information, please contact: [phone] * Full Code (Latest Code Status on File) Date Activated Date Inactivated Comments 04/23/2020 8:55 AM 04/23/2020 4:27 PM * Full Code Date Activated Date Inactivated Comments 04/23/2020 8:55 AM 04/23/2020 8:55 AM Care Teams Machine Sand Mixer Relationship Specialty Start Date End Date Con Gordillo MD [address] [facility] [place] [address] PCP - General Family Practice 07/12/24 Yoli Lu OT [address] [facility] [place] [address] Occupational Therapist Occupational Therapy 08/19/17 Vera Renteria NP [address] [place] [address] Nurse Practitioner Nurse Practitioner 07/12/24 Kayleigh Espana, RN Registered Nurse Pulmonary Disease 08/22/24
[2025-01-31 21:35] LABS: Basophils Percent Auto 0.5 % (0.2-1.2); Eosinophils Absolute Auto 0.2 K/mm3 (0-0.3); Eosinophils Percent Auto 2.9 % (0-4.4); Hematocrit 44.9 % (42.0-52.0); Hemoglobin 14.1 g/dL (14.0-18.0); Immature Granulocyte Absolute 0.01 K/mm3 (0.00-0.031); Immature Granulocyte Percent A 0.2 % (0-0.5); Lymphocytes Absolute Auto 2.25 K/mm3 (0.9-3.2); Lymphocytes Percent Auto 35.7 % (18.3-44.2); Mean Corpuscular HGB Conc 31.4 g/dl (32-36); Mean Corpuscular Hemoglobin 29.9 pg (26-34); Mean Corpuscular Volume 95.3 fl (80-100); Mean Platelet Volume 9.9 fl (7.4-10.4); Monocytes Absolute Auto 0.7 K/mm3 (0.1-0.6); Monocytes Percent Auto 10.3 % (2.6-8.5); Neutrophils Absolute Auto 3.2 K/mm3 (1.3-6.7); Neutrophils Percent Auto 50.4 % (45.5-73.1); Platelet Count Result 160 k/mm3 (150-375); Red Blood Count 4.71 M/mm3 (4.6-6.20); Red Cell Distribution Width 13.5 % (11.5-14.5); White Blood Count 6.3 K/mm3 (4.5-10.0)
[2025-01-31 22:45] LABS: Alanine Aminotransferase 34 U/L (6-50); Albumin Level 4.6 g/dL (3.5-5.1); Alkaline Phosphatase 61 U/L (38-126); Anion Gap 5 mmol/L (4-12); Aspartate Amino Transferase 55 U/L (17-59); Bilirubin,Total 0.5 mg/dL (0.2-1.3); Blood Urea Nitrogen 15 mg/dL (9-20); Calcium 9.5 mg/dL (8.4-10.2); Carbon Dioxide 30 mmol/L (22-30); Chloride 103 mmol/L (98-107); Cholesterol 129 mg/dL (0-200); Estimated Glomerular Filt Rate > 60; Glucose 101 mg/dL (65-110); HDL Direct 37 mg/dL; Potassium 4.1 mmol/L (3.4-5.0); Sodium 138 mmol/L (137-145); Total Protein 7.9 g/dL (6.3-8.2); Triglycerides 91 mg/dL (<150)
[2025-01-31 23:12] LABS: LDL Cholesterol Direct 64 mg/dL
[2025-01-31 23:16] LABS: Prostate Specific Antigen 0.4 ng/mL (< OR = 4.0)
== END 2025-01-31 09:48 | disposition home or self-care (01) ==
LOC: ANHBWCLAB 09:50
PROVIDERS: PCP Nurse Practitioner Adult Health; Visit Provider Nurse Practitioner Adult Health
DX: E78.5 Hyperlipidemia, unspecified (principal); Z12.5 Encounter for screening for malignant neoplasm of prostate
CPT/HCPCS: 36415; 80053; 80061; 84153; 85025; G0103